=== PATIENT | female | born 1980 | race Caucasian/White ===

== ENCOUNTER 2024-10-17 16:57 | Emergency (ER) | payer BC, OTHER ==
[~2024-10-17] VITALS: Ht 167.6 cm; Wt 56.7 kg
[~2024-10-17 16:57] MED LIST: ACET-2079 PO; IBUP-1492 PO; PREN-226 PO
[2024-10-17] MEDS: 0.9%NACL 1000ML 1,000 ML IV ONE (18:04)
[2024-10-17 18:11] LABS: IMMATURE GRANULOCYTE ABSOLUTE 0.03 K/uL (0-1); NUCLEATED RED BLOOD CELLS 0.0 % (0.0-0.19); PLATELET COUNT (AUTO) 208 K/uL (130-400); RED BLOOD CELL COUNT(AUTO) 4.47 MIL/uL (4.00-5.50); RED CELL DISTRIBUTION WIDTH 12.9 % (11.0-15.5); WHITE BLOOD COUNT (AUTO) 9.0 K/uL (4.8-10.8)
--- NOTE | 2024-10-17 18:13 | EKG ---
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
[2024-10-17 18:20] LABS: CREATININE 0.9 mg/dL (0.5-1.0); GLOMERULAR FILTR. RATE CALC 82.0 mL/min (>90); GLUCOSE,RANDOM 103.0 mg/dL (70-105); SODIUM SERUM 141.0 mmol/L (136-145); UREA NITROGEN, BLOOD 20.0 mg/dL (7-18)
[2024-10-17 18:25] LABS: CREATINE KINASE, TOTAL 83.0 U/L (21-232)
[2024-10-17 18:30] LABS: AMPHET/METH SCREEN,URINE NEGATIVE (NEGATIVE); BARBITURATE SCREEN, URINE NEGATIVE (NEGATIVE); CANNABINOID SCREEN,URINE POSITIVE (NEGATIVE); COCAINE SCREEN,URINE NEGATIVE (NEGATIVE)
[2024-10-17 18:34] LABS: APPEARANCE,URINE CLEAR (CLEAR); GLUCOSE, URINE (UA) NEGATIVE (NEGATIVE); LEUKOCYTE ESTERASE ,URINE NEGATIVE Leu/uL (NEGATIVE); NITRATE,URINE NEGATIVE (NEGATIVE); OCCULT BLOOD,URINE NEGATIVE (NEGATIVE)
[2024-10-17 18:36] LABS: ADD UA MICROSCOPIC NO
[2024-10-17 18:38] LABS: HCG,QUALITATIVE URINE NEGATIVE (NEGATIVE)
--- NOTE | 2024-10-17 19:03 | HMCIMG ---
EXAM: CR Chest, 1 View. CLINICAL HISTORY: dizzy COMPARISON: None provided. FINDINGS: LUNGS: The lungs show no infiltrate or other acute finding. PLEURAL SPACES: No evidence of pleural effusion or pneumothorax. MEDIASTINUM: Cardiac size and mediastinal contours within normal limits. BONES: No aggressive appearing osseous lesion seen. IMPRESSION: No other acute cardiopulmonary pathology is evident. /[place]
--- NOTE | 2024-10-17 19:25 | ERN ---
ED Note History of Present Illness Stated Complaint: MULTIPLE COMPLAINTS Chief Complaint: Multiple Complaints Time Seen by MD: 17:23 Time Seen by Midlevel: 17:23 Dictation: The patient is a 43-year-old female with history of tubal ligation who presents to the emergency department with multiple complaints. Patient reports that for the last three years she has been having episodes of weakness, bilateral extremity numbness, dizziness, shakiness just prior her menstrual cycles. Patient reports that she has been following up with her OBGYN about this problem but they have not diagnosed her with a anything. Allergies: Coded Allergies: No Allergy Information Available (Verified Allergy, Unknown, 11/10/21) No Known Drug Allergies (Unverified Allergy, Unknown, 10/17/24) Home Meds Reported Medications Ibuprofen (Ibuprofen) 600 Mg Tablet, 600 MG PO Q6H PRN for PAIN, #30 TAB 11/11/21 Acetaminophen with Codeine (Acetaminophen-Cod #3 Tablet) 1 Each Tablet, 1 EACH PO Q6HPRN PRN for PAIN, #15 TAB 11/11/21 Vit No.179/Iron/Folic ( Tablet) 1 Each Tablet, 1 EACH PO DAILY, TAB 11/10/21 Past Medical History Past Medical History: Anxiety, Depression Surgical History: BTL, RN Note Reviewed/Agreed w/PFSH: Yes Review of System Dictation Constitutional: Negative for fever,chills, and weight loss Eyes: Negative for injury, pain,redness, and discharge ENT: Negative for injury,pain or swelling Cardiovascular: Negative for chest pain, palpitations, and edema Respiratory: Negative for shortness of breath, cough, and wheezing, Abdomen/GI: Negative for abdominal pain, nausea, vomiting, diarrhea, and constipation Back: Negative for injury and pain : Negative for injury, bleeding and discharge MS/Extremity: Negative for injury and deformity Skin: Negative for rash, and discoloration Neuro: Negative for headache, tingling, and seizure positive for bilateral extremity numbness, weakness, dizziness Psych: Negative for suicide ideation, homicidal ideation, and hallucinations Initial Vital Sign VS Vital Signs Date Time Temp Pulse Resp B/P (MAP) Pulse Ox O2 Delivery O2 Flow Rate FiO2 10/17/24 17:00 98.4 84 16 122/91 99 Room Air 10/17/24 17:22 0 21 Physical Exam Dictation Vital Signs reviewed General Appearance: Alert, oriented x 3, no acute distress, well developed, nourished. Head and Face: non-traumatic. Eyes: PERRL, pink conjunctivas, eyelid no trauma, anterior chamber with arcus senilis. Ears: Pinnas intact and no signs of trauma or erythema ear canals clear and no discharge TM no erythema Nose: No discharge, no bleeding. Oropharynx: Mouth normal, tongue pink. pharynx clear,no erythema, tonsils no exudates, no abscesses noted, mucous membrane moist Neck: Supple, non-tender, no thyromegaly, no masses, no JVD, no bruits Breast:Deferred Chest:No tenderness, no crepitus, no paradoxical movement, no retractions Lungs:Clear, well-ventilated, symmetric, no rales, no wheezing, no rhonchi, no stridor, good breath sounds bilaterally Heart: Regular rate, regular rhythm, no murmur, no gallops Vascular: no peripheral edema, Abdomen: Soft, positive bowel sounds, nondistended, no guarding, nontender, no rebound, no masses no hepatomegaly, no splenomegaly, no Barclay's sign, no hernias. Rectal: Deferred Genital: Deferred Neurological: Normal speech, motor function intact, sensory function intact , upper extremities equal in strength, lower extremities equal in strength, no facial droop Musculoskeletal: Neck nontender, full range of motion, back nontender, full range of motion, Extremities: nontender, full range of motion Skin: Color pink, dry, no turgor, no rash, no lacerations, no abrasions, no co ntusions. Lymphatic: Deferred Results (Laboratory/Radiology) Laboratory/Radiology Laboratory Tests Test 10/17/24 18:00 White Blood Count 9.0 K/uL (4.8-10.8) Red Blood Count 4.47 MIL/uL (4.00-5.50) Hemoglobin 13.5 g/dL (12.0-16.0) Hematocrit 39.2 % (36-48) Mean Corpuscular Volume 87.7 fL (79-99) Mean Corpuscular Hemoglobin 30.2 pg (27.0-33.0) Mean Corpuscular Hemoglobin Concent 34.4 g/dL (32.0-36.0) Red Cell Distribution Width 12.9 % (11.0-15.5) Platelet Count 208 K/uL (130-400) Mean Platelet Volume 9.8 fL (7.5-10.5) Immature Granulocyte % (Auto) 0.3 % (0-1) Neutrophils (%) (Auto) 82.1 % (40.0-77.0) H Lymphocytes (%) (Auto) 10.6 % (21.0-51.0) L Monocytes (%) (Auto) 5.7 % (3.0-13.0) Eosinophils (%) (Auto) 1.0 % (0.0-8.0) Basophils (%) (Auto) 0.3 % (0.0-5.0) Neutrophils # (Auto) 7.4 K/uL (1.8-7.7) Lymphocytes # (Auto) 1.0 K/uL (1.0-4.8) Monocytes # (Auto) 0.5 K/uL (0.1-1.0) Eosinophils # (Auto) 0.09 K/uL (0.00-0.70) Basophils # (Auto) 0.03 K/uL (0.00-0.20) Absolute Immature Granulocyte (auto 0.03 K/uL (0-1) Nucleated Red Blood Cells 0.0 % (0.0-0.19) Urine Color COLORLESS (YELLOW) Urine Appearance CLEAR (CLEAR) Urine pH 6.5 (5.0-8.0) Urine Specific [place] 1.008 (1.001-1.031) Urine Protein NEGATIVE mg/dL (NEGATIVE) Urine Glucose (UA) NEGATIVE mg/dL (NEGATIVE) Urine Ketones NEGATIVE mg/dL (NEGATIVE) Urine Occult Blood NEGATIVE (NEGATIVE) Urine Nitrate NEGATIVE (NEGATIVE) Urine Bilirubin NEGATIVE mg/dL (NEGATIVE) Urine Urobilinogen 0.2 mg/dL (0.2-1.0) Urine Leukocyte Esterase NEGATIVE [place]/uL Urine HCG, Qualitative NEGATIVE (NEGATIVE) Sodium Level 141 mmol/L (136-145) Potassium Level 3.6 mmol/L (3.5-5.1) Chloride Level 107 mmol/L (101-111) Carbon Dioxide Level 25 mmol/L (21-32) Blood Urea Nitrogen 20 mg/dL (7-18) H Creatinine 0.9 mg/dL (0.5-1.0) Glomerular Filtration Rate Calc 82 mL/min (>90) Random Glucose 103 mg/dL (70-105) Total Calcium 9.0 mg/dL (8.5-10.1) Total Creatine Kinase 83 U/L (21-232) Troponin I High Sensitivity < 4 ng/L (4-50) L Urine Opiates Screen NEGATIVE (NEGATIVE) Urine Barbiturates Screen NEGATIVE (NEGATIVE) Urine Phencyclidine Screen NEGATIVE (NEGATIVE) Urine Amphetamines Screen NEGATIVE (NEGATIVE) Urine Benzodiazepines Screen NEGATIVE (NEGATIVE) Urine Cocaine Screen NEGATIVE (NEGATIVE) Urine Marijuana (THC) Screen POSITIVE (NEGATIVE) H Labs Reviewed?: Yes ED Course ED Course Orders Procedure Category Date Status Time Cbc With Differential LAB 10/17/24 Complete 17:49 Chest 1vw RAD 10/17/24 Resulted 17:49 12 Lead Ekg Tracing- EKG 10/17/24 Complete Technical 17:49 0.9%Nacl 1000ml (Ns PHA 10/17/24 Complete 1000ml) 18:00 Creatine Kinase, Total LAB 10/17/24 Complete 17:49 Troponin I High LAB 10/17/24 Complete Sensitivity 17:49 Urinalysis Profile LAB 10/17/24 Complete 17:49 Basic Metabolic Panel LAB 10/17/24 Complete 17:49 ,Urine Test LAB 10/17/24 Complete 17:49 Drug Screen Urine LAB 10/17/24 Complete 17:49 Current Medications Medications (Trade) Dose Ordered Sig/Francesco Route PRN Reason Start Time Stop Time Status Last Admin Dose Admin Sodium Chloride 1,000 ml @ 0 mls/hr ONCE ONCE IV 10/17/24 18:00 10/17/24 18:01 DC 10/17/24 18:04 Vital Signs Date Time Temp Pulse Resp B/P (MAP) Pulse Ox O2 Delivery O2 Flow Rate FiO2 10/17/24 18:55 82 19 110/62 100 Room Air* 0 21 10/17/24 17:22 86 20 136/54 97 Room Air* 0 21 10/17/24 17:00 98.4 84 16 122/91 99 Room Air Medical Decision Making MDM The patient is a 43-year-old female with history of tubal ligation who presents to the emergency department with multiple complaints. Patient reports that for the last three years she has been having episodes of weakness, bilateral extremity numbness, dizziness, shakiness just prior her menstrual cycles. Patient reports that she has been following up with her OBGYN about this problem but they have not diagnosed her with a anything. CBC showed no leukocytosis, no anemia, chemistry showed no electrolyte imbalance, negative troponins, urinalysis unremarkable, positive for marijuana. EKG showed normal sinus rhythm. Chest x-ray showed no acute pathology. On physical exam patient is in no acute distress, nontoxic appearance, patient is neurologically intact, stable vital signs. Patient has symptoms could be related to premenstrual syndrome. Patient instructed to continue follow up with OBGYN. Labs and imaging discussed with the patient who agrees to follow up with primary doctor. And OBGYN Differential diagnosis: Dehydration, tachyarrhythmias, anxiety, ACS Need for hospitalization: Patient does not meet criteria for hospitalization. There are no social concerns with this patient. DX & DISP Disposition: Discharge Departure Impression: Primary Impression: Dizziness Additional Impression: Weakness Condition: Stable Additional Instructions: Your labs were unremarkable. Your chest x-ray was normal. Your EKG was normal. Please continue to follow up with your OBGYN and primary doctor. If anything worsens please return to ER. FOLLOW-UP WITH PRIMARY CARE PROVIDER IN 1 TO 2 DAYS. TAKE MEDICATIONS DIRECTED HERE IN THE EMERGENCY ROOM. OKAY TO CONTINUE HOME MEDICATIONS UNLESS OTHERWISE DISCUSSED DURING YOUR VISIT IN THE EMERGENCY ROOM TODAY. RETURN TO YOUR NEAREST EMERGENCY ROOM IF SYMPTOMS WORSEN OR IF THERE IS NO IMPROVEMENT. CALL 911 IF YOU NEED IMMEDIATE ASSISTANCE. TAKE TYLENOL [id number] NEEDED AND IF NO CONTRAINDICATIONS ARE PRESENT. INCREASE ORAL HYDRATION. A WOUND CULTURE OR URINE CULTURE WAS ORDERED HERE IN THE EMERGENCY ROOM DEPARTMENT PLEASE FOLLOW-UP WITH PRIMARY CARE PROVIDER AND ADVISE THEM TO GET REPEAT PORTS FROM OUR FACILITY. IF YOU HAD ANY MARY JANE WRAP/SPLINTS THAT WERE APPLIED HERE, PLEASE DO NOT REMOVE THEM UNTIL YOU SEE YOUR PRIMARY CARE OR SPECIALTY. Referrals: PIPER WATTS MD (PCP) Time of Disposition: 19:24 I have reviewed the case, and I agree with, Diagnosis and Plan JOSE G GUADARRAMA Oct 17, 2024 19:25
[2024-10-17 19:52] VITALS: BP 118/75; PULSE 74; RESP 18; TEMP 97.8; O2SAT 99
== END 2024-10-17 19:54 | disposition home or self-care (01) ==
LOC: EDH 16:57
DX: R42 Dizziness and giddiness (principal); R53.1 Weakness; F32.A Depression, unspecified; F41.9 Anxiety disorder, unspecified; Z79.899 Other long term (current) drug therapy; Z98.51 Tubal ligation status
CPT/HCPCS: 99284; 96360; 71045; 82550; 84484; 80048; 80305; 85025; 81025; 36415; 93005; 81003; J7030

== ENCOUNTER 2025-02-18 13:07 | Emergency (ER) | payer BC, OTHER ==
[~2025-02-18] VITALS: Ht 167.6 cm; Wt 56.7 kg
--- NOTE | 2025-02-18 13:29 | ERN ---
ED Note History of Present Illness Stated Complaint: UTI Chief Complaint: UTI without Fever Time Seen by MD: 13:13 Time Seen by Midlevel: 13:13 Dictation: The patient is a 44-year-old female with a history of depression, anxiety who presents to the emergency department with complaints of bilateral flank pain, burning urination onset this morning. Patient denies any hematuria, denies any fevers, denies any vaginal discharge. Allergies: Coded Allergies: No Allergy Information Available (Verified Allergy, Unknown, 11/10/21) No Known Drug Allergies (Unverified Allergy, Unknown, 10/17/24) Home Meds Reported Medications Ibuprofen (Ibuprofen) 600 Mg Tablet, 600 MG PO Q6H PRN for PAIN, #30 TAB 11/11/21 Acetaminophen with Codeine (Acetaminophen-Cod #3 Tablet) 1 Each Tablet, 1 EACH PO Q6HPRN PRN for PAIN, #15 TAB 11/11/21 Vit No.179/Iron/Folic ( Tablet) 1 Each Tablet, 1 EACH PO DAILY, TAB 11/10/21 Past Medical History Past Medical History: Anxiety, Depression Surgical History: BTL, RN Note Reviewed/Agreed w/PFSH: Yes Review of System Dictation Constitutional: Negative for fever,chills, and weight loss Eyes: Negative for injury, pain,redness, and discharge ENT: Negative for injury,pain or swelling Cardiovascular: Negative for chest pain, palpitations, and edema Respiratory: Negative for shortness of breath, cough, and wheezing, Abdomen/GI: Negative for abdominal pain, nausea, vomiting, diarrhea, and constipation Back: Negative for injury and pain : Positive for painful urination, flank pain MS/Extremity: Negative for injury and deformity Skin: Negative for rash, and discoloration Neuro: Negative for headache, weakness, numbness, tingling, and seizure Psych: Negative for suicide ideation, homicidal ideation, and hallucinations Initial Vital Sign VS Vital Signs Date Time Temp Pulse Resp B/P (MAP) Pulse Ox O2 Delivery O2 Flow Rate FiO2 02/18/25 13:25 97.9 87 16 124/74 99 Room Air 02/18/25 15:33 0 21 Physical Exam Dictation Vital Signs reviewed General Appearance: Alert, oriented x 3, no acute distress, well developed, nourished. Head and Face: non-traumatic. Eyes: PERRL, pink conjunctivas, eyelid no trauma, anterior chamber with arcus senilis. Ears: Pinnas intact and no signs of trauma or erythema ear canals clear and no discharge TM no erythema Nose: No discharge, no bleeding. Oropharynx: Mouth normal, tongue pink. pharynx clear,no erythema, tonsils no exudates, no abscesses noted, mucous membrane moist Neck: Supple, non-tender, no thyromegaly, no masses, no JVD, no bruits Breast:Deferred Chest:No tenderness, no crepitus, no paradoxical movement, no retractions Lungs:Clear, well-ventilated, symmetric, no rales, no wheezing, no rhonchi, no stridor, good breath sounds bilaterally Heart: Regular rate, regular rhythm, no murmur, no gallops Vascular: no peripheral edema, Abdomen: Soft, positive bowel sounds, nondistended, no guarding, nontender, no rebound, no masses no hepatomegaly, no splenomegaly, no Barclay's sign, no hernias. Rectal: Deferred Genital: Deferred Neurological: Normal speech, motor function intact, sensory function intact Musculoskeletal: Neck nontender, full range of motion, back nontender, full range of motion, Extremities: nontender, full range of motion Skin: Color pink, dry, no turgor, no rash, no lacerations, no abrasions, no contusions. Lymphatic: Deferred Results (Laboratory/Radiology) Laboratory/Radiology Laboratory Tests Test 02/18/25 13:28 02/18/25 13:33 Urine Color YELLOW (YELLOW) Urine Appearance CLOUDY (CLEAR) H Urine pH 7.5 (5.0-8.0) Urine Specific [place] 1.019 (1.001-1.031) Urine Protein NEGATIVE mg/dL (NEGATIVE) Urine Glucose (UA) NEGATIVE mg/dL (NEGATIVE) Urine Ketones NEGATIVE mg/dL (NEGATIVE) Urine Occult Blood LARGE (NEGATIVE) H Urine Nitrate NEGATIVE (NEGATIVE) Urine Bilirubin NEGATIVE mg/dL (NEGATIVE) Urine Urobilinogen 0.2 mg/dL (0.2-1.0) Urine Leukocyte Esterase 25 [place]/uL (NEGATIVE) H Urine RBC TNTC /HPF (0-1) H Urine WBC 6-10 /HPF (0-1) H Urine Squamous Epithelial Cells FEW /HPF (0-2) Urine Bacteria RARE /HPF (None Seen) Urine HCG, Qualitative NEGATIVE (NEGATIVE) White Blood Count 6.7 K/uL (4.8-10.8) Red Blood Count 4.33 MIL/uL (4.00-5.50) Hemoglobin 13.3 g/dL (12.0-16.0) Hematocrit 38.8 % (36-48) Mean Corpuscular Volume 89.6 fL (79-99) Mean Corpuscular Hemoglobin 30.7 pg (27.0-33.0) Mean Corpuscular Hemoglobin Concent 34.3 g/dL (32.0-36.0) Red Cell Distribution Width 12.6 % (11.0-15.5) Platelet Count 239 K/uL (130-400) Mean Platelet Volume 9.4 fL (7.5-10.5) Immature Granulocyte % (Auto) 0.3 % (0-1) Neutrophils (%) (Auto) 64.4 % (40.0-77.0) Lymphocytes (%) (Auto) 26.0 % (21.0-51.0) Monocytes (%) (Auto) 6.1 % (3.0-13.0) Eosinophils (%) (Auto) 2.8 % (0.0-8.0) Basophils (%) (Auto) 0.4 % (0.0-5.0) Neutrophils # (Auto) 4.3 K/uL (1.8-7.7) Lymphocytes # (Auto) 1.8 K/uL (1.0-4.8) Monocytes # (Auto) 0.4 K/uL (0.1-1.0) Eosinophils # (Auto) 0.19 K/uL (0.00-0.70) Basophils # (Auto) 0.03 K/uL (0.00-0.20) Absolute Immature Granulocyte (auto 0.02 K/uL (0-1) Nucleated Red Blood Cells 0.0 % (0.0-0.19) Sodium Level 137 mmol/L (136-145) Potassium Level 3.8 mmol/L (3.5-5.1) Chloride Level 105 mmol/L (101-111) Carbon Dioxide Level 28 mmol/L (21-32) Blood Urea Nitrogen 11 mg/dL (7-18) Creatinine 0.9 mg/dL (0.5-1.0) Glomerular Filtration Rate Calc 82 mL/min (>90) Random Glucose 93 mg/dL (70-105) Total Calcium 8.3 mg/dL (8.5-10.1) L REASON: left flank pain ORDERING PHYSICIAN: JOSE G GUADARRAMA PROCEDURE: ABD PEL WO - CT ABDOMEN/PELVIS W/O CONTRAST EXAM: CT Abdomen and Pelvis Without IV contrast CLINICAL HISTORY: left flank pain TECHNIQUE: Axial computed tomography images of the abdomen and pelvis without intravenous contrast. CONTRAST: No IV contrast. COMPARISON: None provided. FINDINGS: LUNG BASES: The lung bases appear clear. No pleural effusions are seen. LIVER: Unremarkable. GALLBLADDER AND BILE DUCTS: The gallbladder appears within normal limits. No radioopaque gallstones are seen. No biliary ductal dilatation is evident. PANCREAS: Unremarkable. SPLEEN: Unremarkable. ADRENAL GLANDS: Unremarkable. KIDNEYS, URETERS, AND BLADDER: 6 mm stone left ureter vesicular junction, with mild hydroureter without hydronephrosis. Other punctate calcified stones in the bilateral kidneys. STOMACH AND BOWEL: Unremarkable appearance of the stomach and bowel. No evidence of bowel obstruction. No evidence suggesting enteritis or colitis. APPENDIX: Appendix is seen without focal inflammatory change. PERITONEUM: No free fluid. No free air. LYMPH NODES: No lymphadenopathy is evident. REPRODUCTIVE: Unremarkable as visualized. VASCULATURE: No evidence of abdominal aortic aneurysm. BONES: No aggressive appearing osseous lesion. No acute osseous pathology evident. IMPRESSION: 1. 6 mm stone left ureter vesicular junction, with mild hydroureter without hydronephrosis. 2. Appendix is seen without focal inflammatory change. /[place] Labs Reviewed?: Yes ED Course ED Course Orders Procedure Category Date Status Time Cbc With Differential LAB 02/18/25 Complete 13:25 ,Urine Test LAB 02/18/25 Complete 13:25 Urinalysis Profile LAB 02/18/25 Complete 13:25 Basic Metabolic Panel LAB 02/18/25 Complete 13:25 Culture Urine MINDI 02/18/25 In Process 13:39 Ceftriaxone 1g Vial PHA 02/18/25 Complete (Rocephine 1g Inj) 14:00 0.9%Nacl 1000ml (Ns PHA 02/18/25 Complete 1000ml) 14:00 Ketorolac PHA 02/18/25 Complete Tromethamine 30mg/Ml 14:00 Ct Abdomen/Pelvis W/O CT 02/18/25 Resulted Contrast 13:43 Tamsulosin Hcl PHA 02/18/25 In Process (Flomax) 16:00 Current Medications Medications (Trade) Dose Ordered Sig/Francesco Route PRN Reason Start Time Stop Time Status Last Admin Dose Admin Ceftriaxone Sodium (ROCEphine 1G INJ) 1 gm ONCE ONCE IVPB 02/18/25 14:00 02/18/25 14:01 DC 02/18/25 14:05 Ketorolac Tromethamine (toRADol) 30 mg ONCE ONCE IVP 02/18/25 14:00 02/18/25 14:01 DC 02/18/25 14:07 Sodium Chloride 1,000 ml @ 0 mls/hr ONCE ONCE IV 02/18/25 14:00 02/18/25 14:01 DC 02/18/25 14:05 Tamsulosin HCl (FloMAX) 0.4 mg ONCE ONCE PO 02/18/25 16:00 02/18/25 16:01 Vital Signs Date Time Temp Pulse Resp B/P (MAP) Pulse Ox O2 Delivery O2 Flow Rate FiO2 02/18/25 15:33 98.2 68 18 141/70 97 Room Air* 0 21 02/18/25 13:25 97.9 87 16 124/74 99 Room Air Medical Decision Making MDM The patient is a 44-year-old female with a history of depression, anxiety who presents to the emergency department with complaints of bilateral flank pain, burning urination onset this morning. Patient denies any hematuria, denies any fevers, denies any vaginal discharge. CBC showed no leukocytosis, no anemia, chemistry showed no electrolyte imbalance, normal renal function, urinalysis positive for leukocyte esterase. CT abdomen and pelvis showed a 6 mm kidney stone to the left vesicular junction with mild hydroureter without hydronephrosis. Patient was giving IV medications, IV fluids. Spoke to patient about lab findings and CT results. Patient feels comfortable enough to go home and follow up with urologist. Reports her pain is controlled. Patient otherwise in no acute distress, nontoxic appearance. Patient will be discharged to follow up with urologist. Differential diagnosis: UTI, pyelonephritis, dehydration, kidney stone Need for hospitalization: Patient does not meet criteria for hospitalization. There are no social concerns with this patient. DX & DISP Disposition: Discharge Departure Impression: Primary Impression: Kidney stone on left side Additional Impression: UTI (urinary tract infection) Condition: Stable Scripts Sulfamethoxazole/Trimethoprim (Bactrim Ds Tablet) 800 Mg-160 Mg Tablet 1 TAB PO BID for 5 Days, #10 TAB 0 Refills Prov: JOSE G GUADARRAMA KELSY 02/18/25 Ibuprofen (Ibuprofen 800 mg Tab) 800 Mg Tab 800 MG PO Q8H PRN for fever or pain for 30 Days, #30 TAB 0 Refills Prov: CHELSEA GUADARRAMAAJITH TIERNEY 02/18/25 Tamsulosin HCl (Flomax) 0.4 Mg Cap.er.24h 0.4 MG PO DAILY, #30 CAPSULE. Prov: CHELSEA GUADARRAMAAJITH TIERENY 02/18/25 Additional Instructions: Your labs were unremarkable. Except you had a urinary tract infection. Please take medications as prescribed. Your CT showed a kidney stone on the left side. You need to follow up with Urology. If you develop fevers, severe pain or symptoms worsen please return to ER. FOLLOW-UP WITH PRIMARY CARE PROVIDER IN 1 TO 2 DAYS. TAKE MEDICATIONS DIRECTED HERE IN THE EMERGENCY ROOM. OKAY TO CONTINUE HOME MEDICATIONS UNLESS OTHERWISE DISCUSSED DURING YOUR VISIT IN THE EMERGENCY ROOM TODAY. RETURN TO YOUR NEAREST EMERGENCY ROOM IF SYMPTOMS WORSEN OR IF THERE IS NO IMPROVEMENT. CALL 911 IF YOU NEED IMMEDIATE ASSISTANCE. TAKE TYLENOL [id number] NEEDED AND IF NO CONTRAINDICATIONS ARE PRESENT. INCREASE ORAL HYDRATION. A WOUND CULTURE OR URINE CULTURE WAS ORDERED HERE IN THE EMERGENCY ROOM DEPARTMENT PLEASE FOLLOW-UP WITH PRIMARY CARE PROVIDER AND ADVISE THEM TO GET REPEAT PORTS FROM OUR FACILITY. IF YOU HAD ANY MARY JANE WRAP/SPLINTS THAT WERE APPLIED HERE, PLEASE DO NOT REMOVE THEM UNTIL YOU SEE YOUR PRIMARY CARE OR SPECIALTY. Referrals: PIPER WATTS MD (PCP) ROBBIE CANO MD Time of Disposition: 16:02 I have reviewed the case, and I agree with, Diagnosis and Plan JOSE G GUADARRAMA KELSY Feb 18, 2025 13:29
[2025-02-18 13:33] LABS: APPEARANCE,URINE CLOUDY (CLEAR); GLUCOSE, URINE (UA) NEGATIVE (NEGATIVE); LEUKOCYTE ESTERASE ,URINE 25 Leu/uL (NEGATIVE); NITRATE,URINE NEGATIVE (NEGATIVE); OCCULT BLOOD,URINE LARGE (NEGATIVE)
[2025-02-18 13:34] LABS: HCG,QUALITATIVE URINE NEGATIVE (NEGATIVE)
[2025-02-18 13:35] LABS: ADD UA MICROSCOPIC YES
[2025-02-18 13:38] LABS: SQUAMOUS EPITHELIAL CELL,UR FEW /HPF (0-2)
[2025-02-18 13:39] LABS: IMMATURE GRANULOCYTE ABSOLUTE 0.02 K/uL (0-1); NUCLEATED RED BLOOD CELLS 0.0 % (0.0-0.19); PLATELET COUNT (AUTO) 239 K/uL (130-400); RED BLOOD CELL COUNT(AUTO) 4.33 MIL/uL (4.00-5.50); RED CELL DISTRIBUTION WIDTH 12.6 % (11.0-15.5); WHITE BLOOD COUNT (AUTO) 6.7 K/uL (4.8-10.8)
[2025-02-18 13:46] LABS: CREATININE 0.9 mg/dL (0.5-1.0); GLOMERULAR FILTR. RATE CALC 82.0 mL/min (>90); GLUCOSE,RANDOM 93.0 mg/dL (70-105); SODIUM SERUM 137.0 mmol/L (136-145); UREA NITROGEN, BLOOD 11.0 mg/dL (7-18)
[2025-02-18] MEDS: 0.9%NACL 1000ML 1,000 ML IV ONE (14:05)
--- NOTE | 2025-02-18 15:08 | HMCIMG ---
EXAM: CT Abdomen and Pelvis Without IV contrast CLINICAL HISTORY: left flank pain TECHNIQUE: Axial computed tomography images of the abdomen and pelvis without intravenous contrast. CONTRAST: No IV contrast. COMPARISON: None provided. FINDINGS: LUNG BASES: The lung bases appear clear. No pleural effusions are seen. LIVER: Unremarkable. GALLBLADDER AND BILE DUCTS: The gallbladder appears within normal limits. No radioopaque gallstones are seen. No biliary ductal dilatation is evident. PANCREAS: Unremarkable. SPLEEN: Unremarkable. ADRENAL GLANDS: Unremarkable. KIDNEYS, URETERS, AND BLADDER: 6 mm stone left ureter vesicular junction, with mild hydroureter without hydronephrosis. Other punctate calcified stones in the bilateral kidneys. STOMACH AND BOWEL: Unremarkable appearance of the stomach and bowel. No evidence of bowel obstruction. No evidence suggesting enteritis or colitis. APPENDIX: Appendix is seen without focal inflammatory change. PERITONEUM: No free fluid. No free air. LYMPH NODES: No lymphadenopathy is evident. REPRODUCTIVE: Unremarkable as visualized. VASCULATURE: No evidence of abdominal aortic aneurysm. BONES: No aggressive appearing osseous lesion. No acute osseous pathology evident. IMPRESSION: 1. 6 mm stone left ureter vesicular junction, with mild hydroureter without hydronephrosis. 2. Appendix is seen without focal inflammatory change. /[place]
[2025-02-18 15:33] VITALS: BP 141/70; PULSE 68; RESP 18; TEMP 98.2; O2SAT 97
[2025-02-18] MEDS ORDERED: TAMS-55 PO (16:04)
[2025-02-18] MEDS ORDERED: IBUP-2077 PO (16:04)
[2025-02-18] MEDS ORDERED: SULF1TAB42 PO (16:04)
== END 2025-02-18 16:22 | disposition home or self-care (01) ==
LOC: EDH 13:07
DX: N20.0 Calculus of kidney (principal); N39.0 Urinary tract infection, site not specified; F41.9 Anxiety disorder, unspecified; F32.A Depression, unspecified; Z98.51 Tubal ligation status; Z98.890 Other specified postprocedural states
CPT/HCPCS: 99284; 74176; 96365; 96375; 80048; 85025; 87086; 87186; 81001; 81025; 36415; J1885; J7030; J0696